=== PATIENT | male | born 1960 | race Hispanic/Latino ===

== ENCOUNTER 2023-01-16 15:43 | Emergency (ER) | payer BC, OTHER ==
[2023-01-16 16:22] LABS: Absolute Lymphocytes (CBC) 1.9 K/uL (0.7-4.9); Lymphocytes % 20.9 % (15.3-44.8); MCV 92.9 fL (80-100); MPV 6.9 fL (7.6-11.3); RBC Red Blood Cell Count 4.53 M/uL (4.33-5.43)
[2023-01-16] MEDS ORDERED: NA CHLORIDE 0.9% 500 ML ONE (16:34)
[2023-01-16 16:37] LABS: Potassium 3.4 mEq/L (3.5-5.1)
--- NOTE | 2023-01-16 16:47 | EDPHYS ---
Physician Documentation [facility] Name: Andres Weeks Age: 62 yrs Sex: Male : 1960 Arrival Date: 01/16/2023 Time: 15:43 Bed 4 Private MD: ED Physician Concepcion Diaz HPI: 01/16 16:10 This 62 yrs old Male presents to ER via Ambulatory with complaints of Nose cp Bleed. 16:10 The patient presents with a nose bleed, occurred spontaneously, that is continuous cp causative factors include: unknown. Onset: The symptoms/episode began/occurred suddenly, just prior to arrival. Associated signs and symptoms: Pertinent negatives: blurred vision, chest pain, fever, lightheadedness. Severity of symptoms: in the emergency department the symptoms are unchanged despite home interventions. Historical: - Allergies: 15:59 Lisinopril; ss - PMHx: 15:59 Hypertensive disorder; ss - Immunization history:: Adult Immunizations unknown. - Social history:: Smoking status: Patient denies any tobacco usage or history of. ROS: 16:15 Constitutional: Negative for body aches, chills, fever, poor PO intake. cp 16:15 ENT: Positive for nose bleed, Negative for drainage from ear(s), ear pain, sore throat, cp difficulty swallowing, difficulty handling secretions. 16:15 Cardiovascular: Negative for chest pain. 16:15 Respiratory: Negative for cough, shortness of breath, wheezing. 16:15 Abdomen/GI: Negative for abdominal pain, nausea, vomiting, and diarrhea. 16:15 Neuro: Negative for altered mental status, dizziness, headache, syncope, weakness. 16:15 All other systems are negative. Exam: 16:20 Constitutional: The patient appears in no acute distress, alert, awake, cp non-diaphoretic, non-toxic, well developed, well nourished. 16:20 Head/Face: Normocephalic, atraumatic. cp 16:20 Eyes: Periorbital structures: appear normal, Conjunctiva: normal, no exudate, no injection, Sclera: no appreciated abnormality, Lids and lashes: appear normal, bilaterally. 16:20 ENT: External ear(s): are unremarkable, Ear canal(s): are normal, clear, TM's: dullness, bilaterally, Nose: External nose: no obvious acute abnormality, bleeding, is seen from the left nare, and is minimal, no septal hematoma is appreciated, Mouth: Lips: moist, Oral mucosa: pink and intact, moist, Posterior pharynx: is normal, airway is patent, no erythema, no exudate. 16:20 Neck: ROM/movement: is normal, is supple, without pain, no range of motions limitations. 16:20 Chest/axilla: Inspection: normal. 16:20 Cardiovascular: Rate: tachycardic, Rhythm: regular. 16:20 Respiratory: the patient does not display signs of respiratory distress, Respirations: normal, no use of accessory muscles, no retractions, labored breathing, is not present, Breath sounds: are clear throughout, no decreased breath sounds, no stridor, no wheezing. 16:20 Abdomen/GI: Exam negative for discomfort, distension, guarding, Inspection: abdomen appears normal. 16:20 Neuro: Orientation: to person, place \T\ time. Mentation: is normal. 16:37 ECG was reviewed by the Attending Physician. cp Vital Signs: 15:56 BP 157 / 91; Pulse 118; Resp 20; Temp 98.9(TE); Pulse Ox 97% on R/A; Weight 108.86 kg; ss Height 5 ft. 5 in. ; Pain 0/10; 17:04 BP 141 / 78; Pulse 98; Resp 18; Temp 98; Pulse Ox 99% on R/A; ph 15:56 Body Mass Index 39.94 (108.86 kg, 165.1 cm) ss 15:56 Pain Scale: Adult ss MDM: 15:51 Patient medically screened. cp 16:30 Differential diagnosis: trauma, sinusitis, epistaxis r/t trauma, spontaneous epistaxis. cp 16:46 Data reviewed: vital signs, nurses notes, lab test result(s). cp 16:46 Consideration of Admission/Observation Escalation of care including cp admission/observation considered. Care significantly affected by the following chronic conditions: Hypertension. Counseling: I had a detailed discussion with the patient and/or guardian regarding: the historical points, exam findings, and any diagnostic results supporting the discharge/admit diagnosis, lab results, to return to the emergency department if symptoms worsen or persist or if there are any questions or concerns that arise at home. Response to treatment: epistaxis resolved, and as a result, I will discharge patient. 01/16 16:03 Order name: CBC with Diff; Complete Time: 16:27 cp 01/16 16:27 Interpretation: Normal except: MPV 6.9. cp 01/16 16:03 Order name: BMP; Complete Time: 16:45 cp 01/16 16:45 Interpretation: Normal except: K 3.4; CRE 0.67. cp 01/16 16:03 Order name: EKG; Complete Time: 16:03 cp 01/16 16:03 Order name: EKG - Nurse/Tech; Complete Time: 16:37 cp 01/16 16:03 Order name: IV; Complete Time: 16:16 cp EC:37 Rate is 102 beats/min. Rhythm is regular. WA interval is normal. QRS interval is cp normal. QT interval is normal. T waves are Inverted in lead aVR. Interpreted by me. Reviewed by me. Administered Medications: 16:37 Drug: NS 0.9% IV 500 ml Route: IV; Rate: bolus; Site: left antecubital; ph 17:03 Follow up: Response: No adverse reaction; IV Status: Completed infusion ph 17:03 Drug: Oxymetazoline Intranasal Drops (0.05 %) 1 sprays Route: Intranasal; Site: both ph nares; 17:04 Follow up: Response: No adverse reaction ph 17:03 Drug: Potassium PO Effervescent Tablet 25 mEq Route: PO; ph 17:04 Follow up: Response: No adverse reaction ph Disposition Summary: 01/16/23 16:46 Discharge Ordered Location: Home cp Problem: new cp Symptoms: are resolved cp Condition: Stable cp Diagnosis - Epistaxis cp Followup: cp - With: Emergency Department - When: As needed - Reason: Worsening of condition Discharge Instructions: - Discharge Summary Sheet cp - Nosebleed, Adult cp Forms: - Medication Reconciliation Form cp - Thank You Letter cp - Antibiotic Education cp - Prescription Opioid Use cp Signatures: Dispatcher [employer] EDKatty Anaya RN RN Nila Pires RN RN ph Hakeem Narvaez PA PA cp
--- NOTE | 2023-01-16 16:47 | ER ---
Nurse's Notes [facility] Name: Andres Weeks Age: 62 yrs Sex: Male : 1960 Arrival Date: 01/16/2023 Time: 15:43 Bed 4 Private MD: Diagnosis: Epistaxis Presentation: 01/16 15:56 Chief complaint: Patient states: Nose bleed that began just prior to arrival while ss cooking. Coronavirus screen: Client denies travel out of the [place] in the last 14 days. Ebola Screen: Patient denies exposure to infectious person. Patient denies travel to an Ebola-affected area in the 21 days before illness onset. Initial Sepsis Screen: Does the patient meet any 2 criteria? No. Patient's initial sepsis screen is negative. Does the patient have a suspected source of infection? No. Patient's initial sepsis screen is negative. Risk Assessment: Do you want to hurt yourself or someone else? Patient reports no desire to harm self or others. Onset of symptoms was January 16, 2023. 15:56 Method Of Arrival: Ambulatory ss 15:56 Acuity: JOSELYN 3 ss Historical: - Allergies: 15:59 Lisinopril; ss - PMHx: 15:59 Hypertensive disorder; ss - Immunization history:: Adult Immunizations unknown. - Social history:: Smoking status: Patient denies any tobacco usage or history of. Screenin:16 [facility] ED Fall Risk Assessment (Adult) History of falling in the last 3 months, ph including since admission No falls in past 3 months (0 pts) Confusion or Disorientation No (0 pts) Intoxicated or Sedated No (0 pts) Impaired Gait No (0 pts) Mobility Assist Device Used No (0 pt) Altered Elimination No (0 pt) Score/Fall Risk Level 0 - 2 = Low Risk Oriented to surroundings, Maintained a safe environment, Hourly rounding (assess needs \T\ fall precautionary measures) done. Abuse screen: Denies threats or abuse. Denies injuries from another. Nutritional screening: No deficits noted. Tuberculosis screening: No symptoms or risk factors identified. Assessment: 15:50 Reassessment: nose clamp applied. ss 16:15 General: Appears in no apparent distress. comfortable, well groomed, Behavior is calm, ph cooperative, appropriate for age. Pain: Denies pain. Neuro: Level of Consciousness is awake, alert, obeys commands, Oriented to person, place, time, situation. Cardiovascular: Capillary refill < 3 seconds in bilateral fingers Patient's skin is warm and dry. Respiratory: Airway is patent Respiratory effort is even, unlabored. EENT: Nares with bleeding noted. Vital Signs: 15:56 BP 157 / 91; Pulse 118; Resp 20; Temp 98.9(TE); Pulse Ox 97% on R/A; Weight 108.86 kg; ss Height 5 ft. 5 in. ; Pain 0/10; 17:04 BP 141 / 78; Pulse 98; Resp 18; Temp 98; Pulse Ox 99% on R/A; ph 15:56 Body Mass Index 39.94 (108.86 kg, 165.1 cm) ss 15:56 Pain Scale: Adult ss ED Course: 15:49 Patient arrived in ED. mr 15:50 Nila Pires, RN is Primary Nurse. ph 15:51 Hakeem Narvaez PA is PHCP. cp 15:51 Concepcion Diaz MD is Attending Physician. cp 15:58 Triage completed. ss 15:59 Arm band placed on right wrist. ss 16:17 Patient has correct armband on for positive identification. Bed in low position. Call ph light in reach. Side rails up X 1. Pulse ox on. NIBP on. Door closed. Noise minimized. 16:18 Inserted saline lock: 20 gauge in left antecubital area, using aseptic technique. Blood ph collected. 17:04 No provider procedures requiring assistance completed. IV discontinued, intact, ph bleeding controlled, No redness/swelling at site. Pressure dressing applied. Administered Medications: 16:37 Drug: NS 0.9% IV 500 ml Route: IV; Rate: bolus; Site: left antecubital; ph 17:03 Follow up: Response: No adverse reaction; IV Status: Completed infusion ph 17:03 Drug: Oxymetazoline Intranasal Drops (0.05 %) 1 sprays Route: Intranasal; Site: both ph nares; 17:04 Follow up: Response: No adverse reaction ph 17:03 Drug: Potassium PO Effervescent Tablet 25 mEq Route: PO; ph 17:04 Follow up: Response: No adverse reaction ph Medication: 16:17 VIS not applicable for this client. ph Outcome: 16:46 Discharge ordered by . cp 17:04 Discharged to home ambulatory, with family. ph 17:04 Condition: good 17:04 Discharge instructions given to patient, family, Instructed on discharge instructions, follow up and referral plans. Demonstrated understanding of instructions, follow-up care. 17:05 Patient left the ED. ph Signatures: Jayna Reeys Shelby, RN RN ss Nila Pires RN RN ph Hakeem Narvaez, MARCELLA NARANJO cp
[2023-01-16] MEDS ORDERED: POTASSIUM 25 MEQ EFFERV TAB ONE (17:00)
[2023-01-16] MEDS ORDERED: OXYMETAZOLINE HCL 0.05% 15ML NAS ONE (17:00)
[2023-01-16 17:26] VITALS: BP 141/78; TEMP 98; O2SAT 99
--- NOTE | 2023-01-17 17:50 | EKG ---
Test Date: 2023-01-16 Test Time: 16:33:50 Rink Rat: PH MEASUREMENT RESULTS: Intervals: Rate: 102 ID: [id number] QRSD: 86 QT: 338 QTc: 440 [place]: P: 43 ID: [id number] QRS: 26 T: 52 INTERPRETIVE STATEMENTS: Sinus tachycardia Otherwise normal ECG No previous ECG available for comparison Electronically Signed On 01-17-23 17:49:10 CDT by Eduardo Hassan
== END 2023-01-16 17:05 | disposition home or self-care (01) ==
LOC: ER 15:43
DX: R04.0 Epistaxis (principal); I10 Essential (primary) hypertension; Z88.8 Allergy status to other drugs, medicaments and biological substances
CPT/HCPCS: 93005; 85025; 80048; 36415; 99284; J7040